=== PATIENT | female | born 1970 | race Hispanic/Latino ===

== ENCOUNTER 2021-05-22 08:32 | Outpatient (CLI) | payer OTHER | END 2021-05-22 08:33 | disposition home or self-care (01) | LOC: CSHMAMMO 08:32 | PROVIDERS: ATTEND Internal Medicine | DX: Z12.31 Encounter for screening mammogram for malignant neoplasm of breast (principal); Z91.89 Other specified personal risk factors, not elsewhere classified | CPT/HCPCS: 77063; 77067 ==

== ENCOUNTER 2022-03-16 08:08 | Emergency (ER) | payer BC, OTHER | END 2022-03-16 09:42 | disposition home or self-care (01) | LOC: CSHERS 08:08 | DX: M25.561 Pain in right knee (principal); E03.9 Hypothyroidism, unspecified; Z79.82 Long term (current) use of aspirin; Z79.899 Other long term (current) drug therapy ==

== ENCOUNTER 2025-07-05 09:30 | Outpatient (CLI) | payer BC | END 2025-07-05 09:31 | disposition home or self-care (01) | LOC: CSHMAMMO 09:30 | PROVIDERS: ATTEND Family Medicine | DX: Z12.31 Encounter for screening mammogram for malignant neoplasm of breast (principal) | CPT/HCPCS: 77063; 77067 ==

== ENCOUNTER 2025-07-15 02:16 | Emergency (ER) | payer BC ==
[2025-07-15] MEDS ORDERED: Acetaminophen 500 MG TAB ONE (02:54)
[2025-07-15] MEDS ORDERED: Ondansetron PF 4 MG/2 ML Vial ONE (02:54)
[2025-07-15] MEDS ORDERED: Ketorolac Tromethamine 30 MG (1 mL) VIAL ONE (02:54)
[2025-07-15 02:57] LABS: Glucose, Urine (Dipstick) Normal (Negative); Protein, Urine (Dipstick) 15 mg/dl (Neg-Trace); Specific Gravity, Urine 1.010 (1.005-1.030)
[2025-07-15 03:07] LABS: #Basophils 0.03 10x3/uL (0.0-0.2); #Eosinophils 0.11 10x3/uL (0.0-0.5); #Monocytes 0.73 10x3/uL (0.0-1.1); #Neutrophils 6.00 10x3/uL (1.5-8.4); %Basophils 0.4 % (0.0-2.0); %Eosinophils 1.3 % (0.0-6.0); %Lymphocytes 11.9 % (18.0-47.0); %Monocytes 8.9 % (0.0-10.0); %Neutrophils 73.3 % (40.0-75.0); Hematocrit 31.9 % (34.9-44.5); Hemoglobin 9.8 g/dL (12.0-15.5); Mean Corpuscular Hemoglobin 23.6 pg (27.0-33.0); Mean Corpuscular Volume 76.9 fL (81.6-98.3); Platelet Count 261 10x3/uL (150-450); Red Blood Cell (RBC) Count 4.15 10x6/uL (3.90-5.03); White Blood Cell (WBC) Count 8.18 10x3/uL (3.5-10.5)
[2025-07-15 03:18] LABS: ALT (SGPT) Less than 4 U/L (Less than 34); AST (SGOT) 43 U/L (11-34); Albumin 2.9 g/dL (3.1-4.5); Alkaline Phosphatase 84 U/L (40-110); Anion Gap 15 mmol/L (10-20); BUN (Urea Nitrogen) 9 mg/dL (9.8-20.1); Bilirubin, Total 0.4 mg/dL (0.3-1.2); Calc. Creatinine Clearance 0 mL/min (70-130); Calcium 9.9 mg/dL (7.8-10.44); Carbon Dioxide 23 mmol/L (22-29); Chloride 102 mmol/L (98-107); Globulin 5.0 g/dL (2.4-3.5); Glucose 153 mg/dL (70-105); Lipase 55 U/L (8-78); Magnesium 2.0 mg/dL (1.6-2.6); Potassium 3.2 mmol/L (3.5-5.1); Sodium 137 mmol/L (136-145)
[2025-07-15 03:21] LABS: Leukocyte 100 (Negative)
[2025-07-15 03:22] LABS: CAUTI Indications for Culture Pelvic or flank pain; RBC/HPF 0-3 HPF (0-3)
[2025-07-15 03:23] LABS: Bacteria/HPF 2+ HPF (None Seen)
[2025-07-15 03:24] LABS: Urine Culture Reflex No No
[2025-07-15 03:24] LABS: Troponin I Less than 0.010 ng/mL (< 0.028)
[2025-07-15] MEDS ORDERED: cefTRIAXone (ROCEPHIN) 2 GM VIAL ONE (04:57)
== END 2025-07-15 06:05 | disposition home or self-care (01) ==
LOC: CSHERS 02:16
DX: J18.9 Pneumonia, unspecified organism (principal); E27.8 Other specified disorders of adrenal gland; D64.9 Anemia, unspecified; E87.6 Hypokalemia; N39.0 Urinary tract infection, site not specified; E03.9 Hypothyroidism, unspecified
CPT/HCPCS: 71275; 74177; 80053; 81001; 83690; 83735; 83880; 84484; 85025; 85379; 87086; 87428; 93005; 96365; 96375; J0696; J1885; J2405